=== PATIENT | male | born 1945 ===

== ENCOUNTER 2018-12-11 06:20 | Day surgery (SDC) | payer OTHER ==
[~2018-12-11 06:20] MED LIST: HYOSCYAMINE0.125 M1 SL; INTESTINEX1 CA1 PO; OXYC1TAB9 PO; PROTONIX40 MG PO
== END 2018-12-11 11:45 | disposition home or self-care (01) ==
LOC: AMB-ENDOS 06:20 → CIR.AMB 10:15 → AMB-ENDOS 10:15
DX: K64.8 Other hemorrhoids (principal)